=== PATIENT | female | born 1940 | race Caucasian/White ===

== ENCOUNTER 2020-12-27 13:13 | Outpatient (CLI) | payer MEDICARE | END 2020-12-27 13:14 | disposition home or self-care (01) | LOC: CSHMRI 13:13 | PROVIDERS: ATTEND Family Medicine | DX: M51.26 Other intervertebral disc displacement, lumbar region (principal); M47.816 Spondylosis without myelopathy or radiculopathy, lumbar region; M48.061 Spinal stenosis, lumbar region without neurogenic claudication; M43.16 Spondylolisthesis, lumbar region; M71.38 Other bursal cyst, other site | CPT/HCPCS: 72148 ==

== ENCOUNTER 2021-01-03 13:04 | Outpatient (CLI) | payer MEDICARE | END 2021-01-03 13:05 | disposition home or self-care (01) | LOC: CSHMRI 13:04 | PROVIDERS: ATTEND Otolaryngology Plastic Surgery within the Head & Neck | DX: R42 Dizziness and giddiness (principal); J32.9 Chronic sinusitis, unspecified; I67.89 Other cerebrovascular disease | CPT/HCPCS: 70553; 82565 ==

== ENCOUNTER 2021-10-27 13:52 | Outpatient (CLI) | payer MEDICARE | END 2021-10-27 13:53 | disposition home or self-care (01) | LOC: CSHRAD 13:52 | PROVIDERS: ATTEND Neurological Surgery | DX: M47.12 Other spondylosis with myelopathy, cervical region (principal); M47.812 Spondylosis without myelopathy or radiculopathy, cervical region; M43.13 Spondylolisthesis, cervicothoracic region | CPT/HCPCS: 72050 ==

== ENCOUNTER 2021-11-16 12:27 | Outpatient (CLI) | payer MEDICARE | END 2021-11-16 12:28 | disposition home or self-care (01) | LOC: CSHCT 12:27 | PROVIDERS: ATTEND Neurological Surgery | DX: M47.812 Spondylosis without myelopathy or radiculopathy, cervical region (principal); M48.02 Spinal stenosis, cervical region | CPT/HCPCS: 72125 ==

== ENCOUNTER 2022-10-25 09:48 | Outpatient (CLI) | payer MEDICARE | END 2022-10-25 09:49 | disposition home or self-care (01) | LOC: CSHULT 09:48 | PROVIDERS: ATTEND Internal Medicine | DX: R10.11 Right upper quadrant pain (principal); K76.0 Fatty (change of) liver, not elsewhere classified | CPT/HCPCS: 76700 ==

== ENCOUNTER 2022-12-28 15:09 | Outpatient (CLI) | payer MEDICARE | END 2022-12-28 15:10 | disposition home or self-care (01) | LOC: CSHRAD 15:09 | PROVIDERS: ATTEND Neurological Surgery | DX: M47.22 Other spondylosis with radiculopathy, cervical region (principal); Z98.890 Other specified postprocedural states | CPT/HCPCS: 72050 ==